=== PATIENT | male | born 1965 | race Two or more races ===

== ENCOUNTER 2020-12-17 23:03 | Inpatient (IN) | payer MEDICAID, MEDICARE ==
[~2020-12-17] VITALS: Ht 170.2 cm; Wt 48.1 kg
[2020-12-17] MEDS ORDERED: IV NS 0.9% 1,000 ML BAG IV ONE (23:30)
--- NOTE | 2020-12-17 23:37 | NUR ---
PT BIB RA FROM SNF DUE TO ALOC AND POOR PO INTAKE. PLACED ON MONITOR AND PULSE OX. VITAL SIGNS STABLE MD WAS AT BEDSIDE FOR EVAL.
[2020-12-17 23:54] LABS: BASOPHILS % (AUTO) 0.7 % (0.0-2.0); EOSINOPHILS % (AUTO) 1.1 % (0.0-6.0); HEMATOCRIT 30 % (39-51); HEMOGLOBIN 9.7 g/dL (13.5-17.5); LYMPHOCYTES # (AUTO) 0.1 K/uL (0.8-4.8); LYMPHOCYTES % (AUTO) 5.5 % (20.0-44.0); MEAN CORPUSCULAR HGB CONC 33 g/dl (31.0-36.0); MEAN CORPUSCULAR VOLUME 89 fL (80-96); MONOCYTES # (AUTO) 0.1 K/uL (0.1-1.30); MONOCYTES % (AUTO) 5.9 % (2.0-12.0); NEUTROPHILS # (AUTO) 1.9 K/uL (1.8-8.9); NEUTROPHILS % (AUTO) 86.8 % (43.0-81.0); PLATELET COUNT (AUTO) 140 K/uL (150-450); RED BLOOD CELL COUNT(AUTO) 3.34 MIL/uL (4.5-6.0); WHITE BLOOD COUNT (AUTO) 2.2 K/uL (4.3-11.0)
[2020-12-18 00:02] LABS: CALCIUM, SERUM 7.9 mg/dL (8.5-10.1); CREATININE 0.6 mg/dL (0.6-1.3); POTASSIUM 3.6 mmol/L (3.5-5.1)
[2020-12-18 00:08] LABS: ALBUMIN 2.5 g/dL (3.4-5.0); BILIRUBIN,DIRECT 0.2 mg/dL (0.0-0.2); BILIRUBIN,TOTAL 0.7 mg/dL (0.2-1.0); TOTAL PROTEIN, SERUM 7.9 g/dL (6.4-8.2)
--- NOTE | 2020-12-18 00:08 | NUR ---
URINE SENT TO LAB
[2020-12-18 00:12] LABS: BILIRUBIN,URINE MODERATE (NEGATIVE); COLOR,URINE AMBER (YELLOW); LEUKOCYTE ESTERASE ,URINE Negative (NEGATIVE); NITRITE, URINE Negative (NEGATIVE); PROTEIN,URINE 100 mg/dl (NEGATIVE); UGLUCOSE Negative (NEGATIVE); UROBILINOGEN,URINE >=8.0 EU/dL (0.2)
[2020-12-18] MEDS ORDERED: DEXTROSE 50%-WATER 50 ML DISP.SYRIN ONE ×2 (00:19→00:32)
--- NOTE | 2020-12-18 00:21 | NUR ---
TRANSPORTED TO CT
[2020-12-18 00:30] LABS: ACETAMINOPHEN 1 ug/ml (10-30)
[2020-12-18] MEDS ORDERED: DEXTROSE 50%-WATER 50 ML DISP.SYRIN IVP ONE (00:30)
[2020-12-18 00:33] LABS: ALCOHOL, BLOOD < 3 mg/dL (0-0); SERUM AMMONIA 17 umol/L (11-32)
--- NOTE | 2020-12-18 00:33 | NUR ---
BACK FROM CT
[2020-12-18 01:05] LABS: EOSINOPHILS % (MANUAL) 3 % (0-4); LYMPHOCYTES % (MANUAL) 4 % (16-48); MONOCYTES % (MANUAL) 6 % (0-11.0); NEUTROPHILS % (MANUAL) 87 (42-76)
[2020-12-18] MEDS ORDERED: CEFTRIAXONE 1GM BAG (ER ONLY) 1 GM/50 ML PIGGYBACK IV ONE (01:30)
[2020-12-18] MEDS ORDERED: AZITHROMYCIN 500 MG in IV D5W 250 ML IV ONE (01:30)
[2020-12-18] MEDS ORDERED: CEFTRIAXONE 1GM BAG (ER ONLY) 50 ML IV ONE (01:32)
--- NOTE | 2020-12-18 01:51 | NUR ---
COVID PCR SENT TO LAB
--- NOTE | 2020-12-18 01:59 | NUR ---
TELE 108
[2020-12-18] MEDS ORDERED: MIRT-121 PO (02:08)
[2020-12-18] MEDS ORDERED: ARIP2TAB3 PO (02:08)
[2020-12-18] MEDS ORDERED: PANT40TA2 PO (02:08)
[2020-12-18] MEDS ORDERED: SERT50TA PO (02:08)
[2020-12-18] MEDS ORDERED: AZITHROMYCIN 500 MG VIAL ONE (02:10)
[2020-12-18] MEDS ORDERED: ONDANSETRON HCL/PF 4 MG/2 ML VIAL IVP PRN (02:30)
[2020-12-18] MEDS ORDERED: Z GUARD REMEDY 2 OZ OINT TP PRN (02:30)
[2020-12-18] MEDS ORDERED: MAGNESIUM HYDROXIDE 30 ML UDC PO PRN (02:30)
[2020-12-18] MEDS ORDERED: ACETAMINOPHEN 325 MG TABLET PO PRN (02:30)
[2020-12-18] MEDS ORDERED: ZOLPIDEM TARTRATE 5 MG TABLET PO PRN (02:30)
[2020-12-18] MEDS ORDERED: IV D5/0.45 NACL 1,000 ML IV PRN (02:30)
[2020-12-18] MEDS: ENOXAPARIN SODIUM 40 MG/0.4 ML DISP.SYRIN SQ SCH ×2 (02:30→09:00)
--- NOTE | 2020-12-18 02:32 | NUR ---
REPORT GIVEN DAVID IN INDU
--- NOTE | 2020-12-18 02:33 | NUR ---
RN NOTE REPORT RECEIVED BY SYLVIE PAN FOR CONTINUATION OF CARE.
--- NOTE | 2020-12-18 02:45 | NUR ---
PT TRANSPORTED ON MONITOR PER [facility]
--- NOTE | 2020-12-18 02:50 | NUR ---
RN NOTE PT BROUGHT TO INDU VIA GURNEY. PT IS ON 4L OF O2 VIA NC SHOWING NO S/S OF RESP DISTRESS. PT IS [place] SPEAKING, BUT ABLE TO UNDERSTAND [place]OV[place]. PT IS A/OX1-2.ON TELE MONITOR SHOWING NSR. IV ACCESS ON LEFT WRIST #20 NOTED. LINE FLUSHED, PATENT, AND INTACT WITH NO INFILTRATION. ALL SAFETY MEASURES IMPLEMENTED. WILL CONTINUE TO MONITOR AND ASSESS FOR ANY CHANGES THROUGHOUT THE SHIFT.
[2020-12-18 02:52] VITALS: BP 96/63
--- NOTE | 2020-12-18 03:35 | NUR ---
RN NOTE PT REFUSING SCHEDULED DOSE OF LOVENOX AT 0230. EXPLAINED RISKS/BENEFITS OF NOT RECEIVING LOVENOX, BUT PT STILL REFUSING. WILL ENDORSE TO MORNING SHIFT RN.
--- NOTE | 2020-12-18 06:48 | NUR ---
RN NOTE NO CHANGES IN PT CONDITION DURING SHIFT. PT IS RESTING IN BED COMFORTABLY. PT IS ON 4L OF O2 VIA NC SHOWING NO S/S OF RESP DISTRESS. PT IS A/OX1-2. ON TELE MONITOR SHOWING NSR. IV ACCESS ON LEFT WRIST #20 NOTED. LINE FLUSHED, PATENT, AND INTACT WITH NO SIGNS OF INFILTRATION. ALL DUE MEDS GIVEN ORDERED. PT KEPT CLEAN AND COMFORTABLE. ALL SAFETY MEASURES IMPLEMENTED. WILL ENDORSE TO MORNING SHIFT RN FOR GEE.
[2020-12-18] MEDS: PANTOPRAZOLE 40 MG TABLET.DR PO SCH (09:23)
[2020-12-18] MEDS: SERTRALINE HCL 50 MG TABLET PO SCH (09:23)
[2020-12-18] MEDS ORDERED: IV D5/ 0.9% NACL 1,000 ML IV PRN (09:30)
[2020-12-18 10:00] VITALS: BP 113/72
[2020-12-18] MEDS: ENSURE ENLIVE CHOC 237 ML CAN PO SCH ×2 (10:00→17:54)
[2020-12-18] MEDS: PIPERACILLIN /TAZOBACTAM 3.375 G in IV D5W 50 ML IV SCH ×2 (10:37→18:54)
[2020-12-18 14:00] VITALS: BP 116/71
[2020-12-18] MEDS: IV LR 1000 ML 1,000 ML IV PRN (17:56)
[2020-12-18 18:00] VITALS: BP 120/77
--- NOTE | 2020-12-18 20:11 | NUR ---
RN OPENING NOTES; RECEIVED PATIENT SLEEP IN BED COMFORTABLY, AROUSABLE TO VERBAL STIMULI, BED IN LOW POSITION, CALL LIGHTS WITHIN REACH, NO COMPLAIN OF PAIN AND DISCOMFORT AT THIS TIME ON TELE MONITORING ST-105 ON WITH IV LINE L WRIST #20 ON PLR@100 ML/HR INFUSING WELL, ON NASAL CANNULA AT 4LPM. NO SOB OR ANY RESP DISTRESS OBSERVED, PATIENT KEPT CLEAN AND DRY, WILL CONTINUE TO MONITOR.
[2020-12-18] MEDS: MIRTAZAPINE 15 MG TABLET PO SCH (21:24)
[2020-12-18] MEDS: ARIPIPRAZOLE 2 MG TABLET PO SCH (21:24)
[2020-12-18 22:00] VITALS: BP 120/77
[2020-12-19 02:00] VITALS: BP 91/56
[2020-12-19] MEDS: PIPERACILLIN /TAZOBACTAM 3.375 G in IV D5W 50 ML IV SCH ×3 (02:05→18:24)
[2020-12-19] MEDS: IV LR 1000 ML 1,000 ML IV PRN ×2 (05:16→23:53)
--- NOTE | 2020-12-19 05:50 | NUR ---
RN NOTES: PATIENT REFUSED BLOOD DRAWN FOR LAB WORK OUT, OFFERED 2X EXPLAINED THE IMPORTANCE AND BENEFITS BUT PATIENT STRONGLY REFUSED, PER WINDOWS SERVER ADMINISTRATOR WILL COME BACK AT LATER TIME TO OFFER BLOOD DRAW
[2020-12-19 06:00] VITALS: BP 91/56
--- NOTE | 2020-12-19 07:36 | NUR ---
RN CLOSING NOTES: RECEIVED PATIENT SLEEP IN BED COMFORTABLY, AROUSABLE TO STIMULI, BED IN LOW POSITION, CALL LIGHTS WITHIN REACH, NO COMPLAIN OF PAIN AND DISCOMFORT AT THIS TIME, PATIENT IS A/O X1, WITHDRAWN, ON TELE MONITORING, WITH IV LINE AT L WRIST #20 ON PLR@100ML/HR INFUSING WELL, PATIENT ON 02 INHALATION AT 2LPM NO SOB OR ANY RESP. DISTRESS OBSERVED, PATIENT KEPT CLEAN AND DRY, ALL NEEDS MET, ENDORSE TO INCOMING SHIFT.
[2020-12-19] MEDS: PANTOPRAZOLE 40 MG TABLET.DR PO SCH (08:34)
[2020-12-19] MEDS: SERTRALINE HCL 50 MG TABLET PO SCH (08:34)
[2020-12-19 08:35] LABS: CALCIUM, SERUM 7.2 mg/dL (8.5-10.1); CREATININE 0.3 mg/dL (0.6-1.3); HEMOGLOBIN 8.3 g/dL (13.5-17.5); POTASSIUM 3.3 mmol/L (3.5-5.1)
[2020-12-19] MEDS: AZITHROMYCIN 500 MG in IV D5W 250 ML IV SCH (08:35)
[2020-12-19] MEDS: ENSURE ENLIVE CHOC 237 ML CAN PO SCH ×2 (08:35→17:22)
[2020-12-19 08:45] LABS: EOSINOPHILS % (AUTO) 3.8 % (0.0-6.0); LYMPHOCYTES # (AUTO) 0.1 K/uL (0.8-4.8); MONOCYTES # (AUTO) 0.1 K/uL (0.1-1.30)
[2020-12-19 08:48] LABS: MAGNESIUM 1.7 mg/dL (1.8-2.4); PHOSPHORUS 2.6 mg/dL (2.5-4.9)
[2020-12-19 08:52] LABS: BASOPHILS % (AUTO) 0.5 % (0.0-2.0); HEMATOCRIT 24 % (39-51); LYMPHOCYTES % (AUTO) 5.4 % (20.0-44.0); MEAN CORPUSCULAR HGB CONC 34 g/dl (31.0-36.0); MEAN CORPUSCULAR VOLUME 86 fL (80-96); MONOCYTES % (AUTO) 6.2 % (2.0-12.0); NEUTROPHILS # (AUTO) 1.4 K/uL (1.8-8.9); NEUTROPHILS % (AUTO) 84.1 % (43.0-81.0); PLATELET COUNT (AUTO) 109 K/uL (150-450); RED BLOOD CELL COUNT(AUTO) 2.81 MIL/uL (4.5-6.0)
[2020-12-19] MEDS ORDERED: CEFTRIAXONE 1 G in IV D5W 50 ML IV SCH (09:00)
[2020-12-19] MEDS: ENOXAPARIN SODIUM 40 MG/0.4 ML DISP.SYRIN SQ SCH (09:00)
[2020-12-19 09:20] LABS: WHITE BLOOD COUNT (AUTO) 1.6 K/uL (4.3-11.0)
[2020-12-19] MEDS ORDERED: POTASSIUM CHLORIDE 20 MEQ TAB.PRT.SR PO SCH (09:30)
[2020-12-19 10:00] VITALS: BP 99/66
--- NOTE | 2020-12-19 10:00 | NUR ---
RN NOTE PER LAB PT WBC 1.6. CHARGE AND PROVIDER NOTIFIED
[2020-12-19] MEDS: Magnesium 1GM/D5W 100ML PREMIX 100 ML IV SCH ×2 (12:04→13:46)
[2020-12-19 12:35] LABS: EOSINOPHILS % (MANUAL) 3 % (0-4); LYMPHOCYTES % (MANUAL) 6 % (16-48); MONOCYTES % (MANUAL) 8 % (0-11.0); NEUTROPHILS % (MANUAL) 83 (42-76)
[2020-12-19 14:00] VITALS: BP 96/60
[2020-12-19] MEDS ORDERED: Magnesium 1GM/D5W 100ML PREMIX 100 ML IV SCH (14:00)
[2020-12-19] MEDS ORDERED: POTASSIUM CHLORIDE 20 MEQ POWDER PACKET GT ONE (14:00)
[2020-12-19 18:00] VITALS: BP 96/60
--- NOTE | 2020-12-19 19:00 | NUR ---
RN OPENING NOTES RECEIVED REPORT FROM MORNING NURSE, PATIENT IN BED ALERT ORIENTED X 1. WITH OXYGEN INHALATION AT 2 LPM VIA NASAL CANULA NO SOB NOTED AT THIS TIME. WITH L WRIST IV ACCESS G 20 FLUSHES WELL. WITH IVF OF PLR 100ML/HR.NO SOB, NO SIGN AND SYMPTOMS OF PAIN AND DISCOMFORT AT THIS TIME. SAFETY MEASURE IN PLACE AT ALL TIMES, BED ON LOWEST LOCK POSITION SIDERAILS UP FOR SAFETY, CALL LIGHT WITHIN REACH. WILL CONTINUE TO MONITOR THE PATIENT
[2020-12-19 20:00] VITALS: BP 95/60
[2020-12-19] MEDS: MIRTAZAPINE 15 MG TABLET PO SCH (21:19)
[2020-12-19] MEDS: ARIPIPRAZOLE 2 MG TABLET PO SCH (21:20)
[2020-12-20] MEDS: PIPERACILLIN /TAZOBACTAM 3.375 G in IV D5W 50 ML IV SCH ×3 (01:16→18:23)
[2020-12-20 04:00] VITALS: BP 102/65
--- NOTE | 2020-12-20 06:43 | NUR ---
RN NOTES PATIENT IN BED ALERT ORIENTED X1, WITH OXYGEN INHALATION AT 2 LPM VIA NASAL CANULA, WITH L WRIST IV ACCESS G 20 PATENT AND FLUSHES WELL, ON IVF OF LR 100CC/HR INFUSING WELL .BED IN LOW POSITION, CALL LIGHTS WITHIN REACH, NO COMPLAIN OF PAIN AND DISCOMFORT AT THIS TIME, ON TELE MONITORING PATIENT ON PATIENT KEPT CLEAN AND DRY, ALL NEEDS MET, ENDORSE TO INCOMING SHIFT.
[2020-12-20 06:51] LABS: CALCIUM, SERUM 6.8 mg/dL (8.5-10.1); CREATININE 0.3 mg/dL (0.6-1.3); MAGNESIUM 1.9 mg/dL (1.8-2.4); PHOSPHORUS 2.6 mg/dL (2.5-4.9); POTASSIUM 3.3 mmol/L (3.5-5.1)
[2020-12-20 06:56] LABS: BASOPHILS % (AUTO) 0.4 % (0.0-2.0); EOSINOPHILS % (AUTO) 4.6 % (0.0-6.0); HEMATOCRIT 24 % (39-51); HEMOGLOBIN 8.1 g/dL (13.5-17.5); LYMPHOCYTES # (AUTO) 0.1 K/uL (0.8-4.8); LYMPHOCYTES % (AUTO) 7.2 % (20.0-44.0); MEAN CORPUSCULAR HGB CONC 34 g/dl (31.0-36.0); MEAN CORPUSCULAR VOLUME 87 fL (80-96); MONOCYTES # (AUTO) 0.1 K/uL (0.1-1.30); MONOCYTES % (AUTO) 7.5 % (2.0-12.0); NEUTROPHILS # (AUTO) 1.3 K/uL (1.8-8.9); NEUTROPHILS % (AUTO) 80.3 % (43.0-81.0); PLATELET COUNT (AUTO) 108 K/uL (150-450); RED BLOOD CELL COUNT(AUTO) 2.74 MIL/uL (4.5-6.0)
[2020-12-20 07:42] LABS: WHITE BLOOD COUNT (AUTO) 1.7 K/uL (4.3-11.0)
[2020-12-20] MEDS: ENOXAPARIN SODIUM 40 MG/0.4 ML DISP.SYRIN SQ SCH (08:29)
[2020-12-20] MEDS: ENSURE ENLIVE CHOC 237 ML CAN PO SCH ×2 (08:29→17:00)
[2020-12-20] MEDS: AZITHROMYCIN 500 MG in IV D5W 250 ML IV SCH (08:53)
[2020-12-20] MEDS: SERTRALINE HCL 50 MG TABLET PO SCH (08:53)
[2020-12-20] MEDS: PANTOPRAZOLE 40 MG TABLET.DR PO SCH (08:53)
[2020-12-20] MEDS ORDERED: POTASSIUM CHLORIDE 20 MEQ TAB.PRT.SR PO SCH (09:30)
[2020-12-20 10:08] LABS: EOSINOPHILS % (MANUAL) 1 % (0-4); LYMPHOCYTES % (MANUAL) 6 % (16-48); MONOCYTES % (MANUAL) 5 % (0-11.0); NEUTROPHILS % (MANUAL) 88 (42-76)
[2020-12-20] MEDS: IV LR 1000 ML 1,000 ML IV PRN ×2 (11:21→21:45)
[2020-12-20 12:00] VITALS: BP 102/68
[2020-12-20 20:00] VITALS: BP 90/58
--- NOTE | 2020-12-20 20:00 | NUR ---
RN OPENING NOTES; RECEIVED PATIENT IN BED COMFORTABLY, A/OX1-2 [place] SPEAKING , NO SOB NO DISTRESS NOTED V/S STABLE AFEBRILE .BED IN LOW LOCKED POSITION, CALL LIGHTS WITHIN REACH, NO COMPLAIN OF PAIN AND DISCOMFORT AT THIS TIME. WITH IV LINE L WRIST #20 ON IVF LR@100 ML/HR INFUSING WELL, ON NASAL CANNULA AT 2LPM, PATIENT KEPT CLEAN AND DRY, WILL CONTINUE TO MONITOR.
[2020-12-20] MEDS: ARIPIPRAZOLE 2 MG TABLET PO SCH (21:02)
[2020-12-20] MEDS: MIRTAZAPINE 15 MG TABLET PO SCH (21:02)
--- NOTE | 2020-12-20 22:00 | NUR ---
MS RN NOTES DUIE MEDS GIVEN ORDERED NO ASE NOTED , WILL CONTINUE TO MONITOR PTS.
[2020-12-21] MEDS: PIPERACILLIN /TAZOBACTAM 3.375 G in IV D5W 50 ML IV SCH ×2 (01:00→09:21)
[2020-12-21 04:00] VITALS: BP 125/71
--- NOTE | 2020-12-21 06:39 | NUR ---
ms rn notes pts remains in bed awake a/ox1-2 on 2 litersof o2 via nc sating 97% no sob no distress noted .on ivf of lr at 1oo cc/hr infusing well all needs attended too ,will endorse to rn day for continuity of care ,pts is on 72 hrs calorie count .
[2020-12-21 07:10] LABS: BASOPHILS % (AUTO) 0.3 % (0.0-2.0); EOSINOPHILS % (AUTO) 4.9 % (0.0-6.0); HEMATOCRIT 24 % (39-51); HEMOGLOBIN 8.1 g/dL (13.5-17.5); LYMPHOCYTES % (AUTO) 2.8 % (20.0-44.0); MEAN CORPUSCULAR HGB CONC 34 g/dl (31.0-36.0); MEAN CORPUSCULAR VOLUME 86 fL (80-96); MONOCYTES # (AUTO) 0.1 K/uL (0.1-1.30); MONOCYTES % (AUTO) 4.4 % (2.0-12.0); NEUTROPHILS # (AUTO) 1.5 K/uL (1.8-8.9); NEUTROPHILS % (AUTO) 87.6 % (43.0-81.0); PLATELET COUNT (AUTO) 117 K/uL (150-450); RED BLOOD CELL COUNT(AUTO) 2.76 MIL/uL (4.5-6.0)
[2020-12-21 07:12] LABS: WHITE BLOOD COUNT (AUTO) 1.7 K/uL (4.3-11.0)
[2020-12-21 07:18] LABS: THYROID STIMULATING HORMONE 1.092 uIU/mL (0.358-3.74); URIC ACID 0.9 mg/dL (2.6-7.2)
[2020-12-21 07:20] LABS: CREATININE 0.3 mg/dL (0.6-1.3); MAGNESIUM 1.7 mg/dL (1.8-2.4); PHOSPHORUS 2.6 mg/dL (2.5-4.9); POTASSIUM 3.1 mmol/L (3.5-5.1)
[2020-12-21] MEDS: PANTOPRAZOLE 40 MG TABLET.DR PO SCH (07:30)
--- NOTE | 2020-12-21 07:40 | NUR ---
RN OPENING NOTES; RECEIVED PATIENT IN BED ASLEEP, EASILY AWAKEN BY VERBAL AND TACTILE STIMULI, A/OX1-2 [place] SPEAKING , WITH O2 VIA NC AT 2LPM, NO SOB NO DISTRESS NOTED V/S STABLE AFEBRILE. SAFETY MEASURES IN PLACE: BED IN LOW LOCKED POSITION, SIDE RAILS UP X 2, CALL LIGHTS WITHIN REACH, NO COMPLAIN OF PAIN AND DISCOMFORT AT THIS TIME. WITH IV LINE L WRIST #20 ON IVF LR@100 ML/HR INFUSING WELL. WILL CONTINUE TO MONITOR ACCORDINGLY.
[2020-12-21] MEDS: ENSURE ENLIVE CHOC 237 ML CAN PO SCH ×2 (07:59→16:34)
[2020-12-21] MEDS: IV LR 1000 ML 1,000 ML IV PRN (07:59)
[2020-12-21] MEDS: SERTRALINE HCL 50 MG TABLET PO SCH (08:20)
[2020-12-21] MEDS: AZITHROMYCIN 500 MG in IV D5W 250 ML IV SCH (08:20)
[2020-12-21] MEDS: ENOXAPARIN SODIUM 40 MG/0.4 ML DISP.SYRIN SQ SCH (08:21)
[2020-12-21] MEDS ORDERED: ONDA4TAB5 PO (08:42)
[2020-12-21] MEDS ORDERED: ACET-868 PO (08:42)
[2020-12-21] MEDS: Magnesium 1GM/D5W 100ML PREMIX 100 ML IV SCH ×2 (09:57→11:09)
[2020-12-21] MEDS ORDERED: POTASSIUM CHLORIDE 20 MEQ TAB.PRT.SR PO SCH (10:00)
[2020-12-21 12:36] VITALS: BP 125/71
--- NOTE | 2020-12-21 13:33 | NUR ---
RN NOTES PATIENT IS FOR STRICT CALORIE COUNT FOR 72 HOURS. NOTIFIED NUTRITION DEPARTMENT AND SPOKE TO EDUARDO.
[2020-12-21] MEDS ORDERED: PIPERACILLIN /TAZOBACTAM 3.375 G in IV D5W 100 ML IV SCH (17:00)
--- NOTE | 2020-12-21 18:30 | NUR ---
MS RN CLOSING NOTES PATIENT IN BED, AWAKE, A/OX1-2 CZE[place] SPEAKING , WITH O2 VIA NC AT 2LPM, NO SOB NO DISTRESS NOTED. AFEBRILE. SAFETY MEASURES IN PLACE: BED IN LOW LOCKED POSITION, SIDE RAILS UP X 2, CALL LIGHTS WITHIN REACH, NO COMPLAINTS OF PAIN AND DISCOMFORT AT THIS TIME. WITH IV LINE L WRIST #20 ON IVF LR@100 ML/HR INFUSING WELL. ALL NEEDS ATTENDED AND MET. DUE MEDS GIVEN AT THIS TIME. WILL ENDORSE TO ONCOMING SHIFT FOR GEE.
--- NOTE | 2020-12-21 19:23 | NUR ---
RN NOTES PATIENT IN BED, AWAKE, A/OX1-2 ROMANSH SPEAKING , WITH O2 VIA NC AT 2LPM, NO SOB NO DISTRESS NOTED. AFEBRILE. SAFETY MEASURES IN PLACE: BED IN LOW LOCKED POSITION, SIDE RAILS UP X 2, CALL LIGHTS WITHIN REACH, NO COMPLAINTS OF PAIN AND DISCOMFORT AT THIS TIME. WITH IV LINE L WRIST #20 ON IVF LR@100 ML/HR INFUSING WELL. ALL NEEDS ATTENDED AND MET AT THIS TIME. WILL CONTINUE TO MONITOR.
[2020-12-21 21:21] VITALS: BP 131/97
[2020-12-21] MEDS: MIRTAZAPINE 15 MG TABLET PO SCH (22:11)
[2020-12-21] MEDS: ARIPIPRAZOLE 2 MG TABLET PO SCH (22:11)
[2020-12-21] MEDS ORDERED: CEFTRIAXONE 1 G VIAL ONE ×2 (22:26)
--- NOTE | 2020-12-21 22:28 | NUR ---
RN NOTES NEW ORDER FOR ROCEPHIN 2G ONLY HAVE ROCEPHIN 1G VIALS TWO VIALS USED TWO BAGS USED. WILL CONTINUE TO MONITOR.
[2020-12-21] MEDS ORDERED: CEFTRIAXONE 2 G in IV D5W 100 ML IV SCH (22:30)
[2020-12-22] MEDS: IV LR 1000 ML 1,000 ML IV PRN (03:18)
[2020-12-22 04:39] VITALS: BP 110/57
[2020-12-22 05:59] LABS: BASOPHILS % (AUTO) 0.5 % (0.0-2.0); EOSINOPHILS % (AUTO) 2.3 % (0.0-6.0); HEMATOCRIT 25 % (39-51); HEMOGLOBIN 8.6 g/dL (13.5-17.5); LYMPHOCYTES # (AUTO) 0.1 K/uL (0.8-4.8); LYMPHOCYTES % (AUTO) 2.5 % (20.0-44.0); MEAN CORPUSCULAR HGB CONC 34 g/dl (31.0-36.0); MEAN CORPUSCULAR VOLUME 86 fL (80-96); MONOCYTES # (AUTO) 0.1 K/uL (0.1-1.30); MONOCYTES % (AUTO) 4.1 % (2.0-12.0); NEUTROPHILS # (AUTO) 2.2 K/uL (1.8-8.9); NEUTROPHILS % (AUTO) 90.6 % (43.0-81.0); PLATELET COUNT (AUTO) 129 K/uL (150-450); RED BLOOD CELL COUNT(AUTO) 2.91 MIL/uL (4.5-6.0); WHITE BLOOD COUNT (AUTO) 2.4 K/uL (4.3-11.0)
--- NOTE | 2020-12-22 06:19 | NUR ---
RN NOTES PATIENT IN BED, AWAKE, A/OX1-2 IRISH SPEAKING , WITH O2 VIA NC AT 2LPM, NO SOB NO DISTRESS NOTED. AFEBRILE. SAFETY MEASURES IN PLACE: BED IN LOW LOCKED POSITION, SIDE RAILS UP X 2, CALL LIGHTS WITHIN REACH, NO COMPLAINTS OF PAIN AND DISCOMFORT AT THIS TIME. WITH IV LINE L WRIST #20 ON IVF LR@100 ML/HR INFUSING WELL. ALL NEEDS ATTENDED AND MET AT THIS TIME. WILL ENDORSE CARE TO DAY SHIFT NURSE.
[2020-12-22 07:11] LABS: CALCIUM, SERUM 7.1 mg/dL (8.5-10.1); CREATININE 0.3 mg/dL (0.6-1.3); MAGNESIUM 1.8 mg/dL (1.8-2.4); PHOSPHORUS 2.5 mg/dL (2.5-4.9); POTASSIUM 3.7 mmol/L (3.5-5.1)
--- NOTE | 2020-12-22 07:30 | NUR ---
PT RECEIVED RESTING COMFORTABLY IN BED. NO S/S OR C/O PAIN OR DISTRESS NOTED. SIDERAILS UP X2, CALL LIGHT LEFT WITHIN REACH. WILL CONTINUE PLAN OF CARE.
[2020-12-22] MEDS: ENSURE ENLIVE CHOC 237 ML CAN PO SCH (08:00)
[2020-12-22] MEDS: PANTOPRAZOLE 40 MG TABLET.DR PO SCH (08:23)
[2020-12-22] MEDS: SERTRALINE HCL 50 MG TABLET PO SCH (08:23)
[2020-12-22] MEDS: ENOXAPARIN SODIUM 40 MG/0.4 ML DISP.SYRIN SQ SCH (08:35)
[2020-12-22] MEDS ORDERED: PANT40TA2 PO (13:04)
[2020-12-22] MEDS ORDERED: CEFT2VIA64 IJ (13:04)
--- NOTE | 2020-12-22 15:42 | NUR ---
PT TRANSFERRED TO SNF PT TAKEN VIA AMBULANCE WITH ALL PERSONAL BELONGINGS. REPORT GIVEN TO RN AT [facility]. IV CATHETER INTACT AND LEFT IN DISCUSSED WITH [facility] NURSE.
[2020-12-23 01:06] LABS: *BASOS 0 % (Not Estab.); *EOS 3 % (Not Estab.); *EOS, ABSOLUTE 0.1 x10E3/uL (0.0-0.4); *HCT 25.1 % (37.5-51.0); *HGB 8.7 g/dL (13.0-17.7); *IMMATURE GRANULOCYTES 0 % (Not Estab.); *LYMPHOCYTES 2 % (Not Estab.); *LYMPHS, ABSOLUTE 0.1 x10E3/uL (0.7-3.1); *MCH 29.3 pg (26.6-33.0); *MCHC 34.7 g/dL (31.5-35.7); *MCV 85 fL (79-97); *MONOCYTES 5 % (Not Estab.); *MONOS, ABSOLUTE 0.1 x10E3/uL (0.1-0.9); *NEUTROPHILS 90 % (Not Estab.); *NEUTROPHILS, ABSOLUTE 2.2 x10E3/uL (1.4-7.0); *PLT 124 x10E3/uL (150-450); *RBC 2.97 x10E6/uL (4.14-5.80); *RDW 14.6 % (11.6-15.4)
[2020-12-25 20:06] LABS: *HIV-1 RNA BY PCR 547710 copies/mL (.); *HIV-1 log10 RNA 5.739 (.)
== END 2020-12-22 16:00 | DRG 720 ==
LOC: ER 23:11 → TELE1 12-18 02:12 → MEDSG1 12-19 08:48
PROVIDERS: ADMIT Nurse Practitioner Acute Care; ATTEND Nurse Practitioner Acute Care
DX: A41.50 Gram-negative sepsis, unspecified (principal); E43 Unspecified severe protein-calorie malnutrition; D61.818 Other pancytopenia; N17.9 Acute kidney failure, unspecified; G92.8 Other toxic encephalopathy; E87.1 Hypo-osmolality and hyponatremia; F29 Unspecified psychosis not due to a substance or known physiological condition; R62.7 Adult failure to thrive; E86.0 Dehydration; E16.2 Hypoglycemia, unspecified; Z20.822 Contact with and (suspected) exposure to COVID-19; K21.9 Gastro-esophageal reflux disease without esophagitis; E83.42 Hypomagnesemia; Z68.1 Body mass index [BMI] 19.9 or less, adult; J98.11 Atelectasis; D72.819 Decreased white blood cell count, unspecified; I10 Essential (primary) hypertension; B19.20 Unspecified viral hepatitis C without hepatic coma; E86.1 Hypovolemia; F39 Unspecified mood [affective] disorder; Z91.19 Patient's noncompliance with other medical treatment and regimen; Z91.14 Patient's other noncompliance with medication regimen
CPT/HCPCS: 36415; 70450-TC; 71045-TC; 80048-TC; 80076-TC; 82140-TC; 82962-TC; 83605-TC; 83735-TC; 83880; 84100-TC; 84300-TC; 84443-TC; 84550-TC; 85025-TC; 86360; 86803; 87040-TC; 87081-TC; 87186-TC; 87536; 87806; 92526; 92611-TC; 93307-TC; 97110-TC; 97112-TC; 97530-TC; C9803; G0378; G0480; J0456; J0696; J1650; J2543; J3475; J3490; J7030; J7042; J7060; J7120; U0003